=== PATIENT | male | born 1995 | race Caucasian/White ===

== ENCOUNTER 2017-05-30 15:48 | Emergency (ER) | END 2017-05-30 19:28 | disposition home or self-care (01) ==

== ENCOUNTER 2017-06-11 14:30 | Emergency (ER) | END 2017-06-11 17:09 | disposition home or self-care (01) ==

== ENCOUNTER 2018-06-10 21:06 | Emergency (ER) | payer OTHER ==
[~2018-06-10] VITALS: Ht 180.3 cm; Wt 74.8 kg
[~2018-06-10 21:06] MED LIST: CLOT30CR24 TOP; HC30CR25 TOP; IBUP-1542 PO
[2018-06-10 21:08] VITALS: Ht 180.3 cm; Wt 74.8 kg
--- NOTE | 2018-06-10 22:28 | ERD ---
ER Documentation Chief Complaint Chief Complaint genital pain x3 days w/ clear discharge. no dysuria/n/v HPI 22-year-old male presents with 3 days of clear purulent drainage from his penis. He does admit to recent unprotected sex. No dysuria. No testicular pain. No hematuria. No fever. No nausea or vomiting. ROS All systems reviewed and are negative except as per history of present illness. Medications Home Meds Active Scripts Clotrimazole* (Clotrimazole* AF) 1% - 30 Gm Cream.gm., 1 APPLIC TOP BID for 7 Days, #1 TUB Prov:SAMMI DICKSON PA-C 06/11/17 Hydrocortisone* Topical (Hydrocortisone* Topical) 2.5%-28.3 Gm Cream..g., 1 APPLIC TOP BID, #1 TUB Prov:SAMMI DICKSON PA-C 06/11/17 Ibuprofen* (Motrin*) 600 Mg Tab, 600 MG PO Q6, #30 TAB Prov:DIEGO REYNA 05/30/17 Allergies Allergies: Coded Allergies: No Known Drug Allergy (Verified Allergy, Unknown, 10/05/12) PMhx/Soc Anesthesia Reaction: No Hx Neurological Disorder: No Hx Respiratory Disorders: No Hx Cardiac Disorders: No Hx Psychiatric Problems: No Hx Miscellaneous Medical Probl: No Hx Alcohol Use: No Hx Substance Use: Yes (marijuana) Hx Tobacco Use: No Smoking Status: Never smoker FmHx Family History: No diabetes Physical Exam Vitals Vital Signs Date Temp Pulse Resp B/P (MAP) Pulse Ox O2 O2 Flow FiO2 Time Delivery Rate 06/10/18 98.1 85 16 154/85 96 21:08 (108) Physical Exam INITIAL VITAL SIGNS: Reviewed by me GENERAL: Awake, alert and oriented x 4, well appearing, nontoxic, speaking in full sentences. No acute distress HEAD: Atraumatic NECK: Supple. No masses. Full range of motion. No meningismus. No midline tenderness. EYES: EOMI. PERRL. RESPIRATORY: Clear to auscultation bilaterally. Symmetric chest wall rise. No wheezing or rales. No accessory muscle use. CV: Regular rate and rhythm. No murmurs, rubs, or gallops. ABDOMEN: Soft, non-distended. Nontender. Negative [place]. Negative McBurneys point tenderness. No CVA tenderness bilaterally. No guarding. No rebound. : Clear purulent drainage from penis, testicles nontender, no inguinal lymphadenopathy Results 24 hrs Current Medications Medications Dose Sig/Harpreet Start Time Status Last (Trade) Ordered Route PRN Stop Time Admin Dose Reason Admin Ceftriaxone 250 mg ONCE ONCE 06/10/18 Sodium IM 22:30 (Rocephin) 06/10/18 22:31 1,000 mg ONCE ONCE 06/10/18 Azithromycin PO 22:30 (Zithromax) 06/10/18 22:31 Procedures/MDM 22-year-old presents with urethritis. Patient given ceftriaxone and azithromycin here and counseled to follow-up to get a full STD panel checked. Refrain from sexual activity until all symptoms completely resolved. Patient counseled regarding my diagnostic impression and care plan. Prior to discharge all questions answered. Pt agrees with treatment plan and understands strict return precautions. Pt is instructed to follow up with primary care provider within 24-48 hours. Precautionary instructions provided including instructions to return to the ER if not improving or for any worsening or changing symptoms or concerns. Departure Diagnosis: Primary Impression: Urethritis Condition: Stable RASHARD ROCHA PA-C Jun 10, 2018 22:28
[2018-06-10] MEDS ORDERED: AZITHROMYCIN 250 MG TAB PO ONE (22:30)
[2018-06-10] MEDS ORDERED: CEFTRIAXONE 250 MG INJ IM ONE (22:30)
[2018-06-10 23:36] VITALS: BP 146/82; PULSE 86; RESP 16
== END 2018-06-10 23:37 | disposition home or self-care (01) ==
LOC: FTE 21:06
DX: N34.2 Other urethritis (principal)
CPT/HCPCS: 81003; 87086; J0696; Z7610; 96372

== ENCOUNTER 2018-09-27 16:20 | Emergency (ER) | payer OTHER ==
[~2018-09-27] VITALS: Ht 180.3 cm; Wt 75.4 kg
[2018-09-27 16:26] VITALS: Ht 180.3 cm; Wt 75.4 kg
[2018-09-27] MEDS ORDERED: IOHEXOL 100 ML ONE (18:18)
[2018-09-27] MEDS ORDERED: SOD CHLORIDE 0.9% 100 ML ONE (18:18)
[2018-09-27] MEDS ORDERED: IBUP-1542 PO (18:36)
[2018-09-27 21:15] VITALS: BP 121/79; PULSE 75; RESP 18
--- NOTE | 2018-10-11 12:11 | ERD ---
ER Documentation Chief Complaint Chief Complaint c/o neck pain after "cracking" it, no neuro deficit HPI 22-year-old male presents with left-sided neck pain radiating to his head for the last 2 to 3 days. Started after cracking his neck. He has intermittent blurry vision without visual field deficits. Denies any chest pain, shortness of breath. ROS All systems reviewed and are negative except as per history of present illness. Medications Home Meds Active Scripts Ibuprofen* (Motrin*) 600 Mg Tab, 600 MG PO Q6, #15 TAB Prov:LYSSA RIOS MD 09/27/18 Clotrimazole* (Clotrimazole* AF) 1% - 30 Gm Cream.gm., 1 APPLIC TOP BID for 7 Days, #1 TUB Prov:SAMMI DICKSON PA-C 06/11/17 Hydrocortisone* Topical (Hydrocortisone* Topical) 2.5%-28.3 Gm Cream..g., 1 APPLIC TOP BID, #1 TUB Prov:SAMMI DICKSON PA-C 06/11/17 Ibuprofen* (Motrin*) 600 Mg Tab, 600 MG PO Q6, #30 TAB Prov:DIEGO REYNA 05/30/17 Allergies Allergies: Coded Allergies: No Known Drug Allergy (Verified Allergy, Unknown, 09/27/18) PMhx/Soc Anesthesia Reaction: No Hx Neurological Disorder: No Hx Respiratory Disorders: No Hx Cardiac Disorders: No Hx Psychiatric Problems: No Hx Miscellaneous Medical Probl: No Hx Alcohol Use: No Hx Substance Use: Yes (marijuana) Hx Tobacco Use: No Smoking Status: Never smoker FmHx Family History: No diabetes, No coronary disease, No other Physical Exam Physical Exam Const: No acute distress Head: Atraumatic Eyes: Normal Conjunctiva and eyes Junior and extraocular movements intact. ENT: Normal External Ears, Nose and Mouth. Neck: Full range of motion. No meningismus. Mild tenderness left posterior cervical paraspinous muscles occipital area. Resp: Clear to auscultation bilaterally Cardio: Regular rate and rhythm, no murmurs Abd: Soft, non tender, non distended. Normal bowel sounds Skin: No petechiae or rashes Back: No midline or flank tenderness Ext: No cyanosis, or edema Neur: Awake and alert normal gait. No appreciable focal neurologic deficits. Cranial nerves II through XII grossly intact. Psych: Normal Mood and Affect Results 24 hrs Laboratory Tests Test 09/27/18 17:09 White Blood Count 7.4 10^3/ul Red Blood Count 5.29 10^6/ul Hemoglobin 15.8 g/dl Hematocrit 46.9 % Mean Corpuscular Volume 88.7 fl Mean Corpuscular Hemoglobin 29.9 pg Mean Corpuscular Hemoglobin Concent 33.7 g/dl Red Cell Distribution Width 11.8 % Platelet Count 273 10^3/UL Mean Platelet Volume 9.8 fl Immature Granulocytes % 0.100 % Neutrophils % 51.9 % Lymphocytes % 33.3 % Monocytes % 9.9 % Eosinophils % 4.1 % Basophils % 0.7 % Nucleated Red Blood Cells % 0.0 /100WBC Immature Granulocytes # 0.010 10^3/ul Neutrophils # 3.8 10^3/ul Lymphocytes # 2.5 10^3/ul Monocytes # 0.7 10^3/ul Eosinophils # 0.3 10^3/ul Basophils # 0.1 10^3/ul Nucleated Red Blood Cells # 0.0 10^3/ul Urine Color YELLOW Urine Clarity CLEAR Urine pH 5.0 Urine Specific Patriot 1.023 Urine Ketones NEGATIVE mg/dL Urine Nitrite NEGATIVE mg/dL Urine Bilirubin NEGATIVE mg/dL Urine Urobilinogen NEGATIVE mg/dL Urine Leukocyte Esterase NEGATIVE Sean/ul Urine Hemoglobin NEGATIVE mg/dL Urine Glucose NEGATIVE mg/dL Urine Total Protein NEGATIVE mg/dl Sodium Level 142 mmol/L Potassium Level 4.3 mmol/L Chloride Level 103 mmol/L Carbon Dioxide Level 29 mmol/L Anion Gap 10 Blood Urea Nitrogen 15 mg/dl Creatinine 0.95 mg/dl Est Glomerular Filtrat Rate mL/min > 60 mL/min Glucose Level 92 mg/dl Calcium Level 10.3 mg/dl Current Medications Medications Dose Sig/Harpreet Start Time Status Last (Trade) Ordered Route PRN Stop Time Admin Dose Reason Admin IV Flush 10 ml STK-MED 09/27/18 DC 09/27/18 (NS 10 ml) ONCE .ROUTE 18:18 18:38 09/27/18 18:19 Sodium 100 ml @ STK-MED 09/27/18 DC 09/27/18 Chloride ONCE .ROUTE 18:18 18:38 09/27/18 18:19 Iohexol 100 ml @ ud STK-MED 09/27/18 DC 09/27/18 ONCE .ROUTE 18:18 18:39 09/27/18 18:19 Procedures/MDM Patient presents with left-sided neck pain, headache and complaints of visual changes after cracking his neck 2 days ago. Given the potential emergent cause of CT brain and neck angios was performed which was read as negative by the radiologist. Patient has no signs of carotid or vertebral dissection, bleeding, neurologic deficits, signs of bacterial infection, fracture, dislocation, additional concerning signs or symptoms. Likely has cervical strain. She will be discharged home with pain control, primary care follow-up and return precautions. The patient was stable with no new complaints during the ER c ourse. Clinically, there is no current evidence to suggest meningitis, sepsis, acute abdomen, pneumonia, stroke, acute coronary syndrome, pulmonary embolism, aortic dissection or any other emergent condition appearing to require further evaluation or hospitalization. Patient counseled regarding my diagnostic impression and care plan. Prior to discharge all questions answered. Pt agrees with treatment plan and understands strict return precautions. Pt is instructed to follow up with primary care provider within 24-48 hours. Precautionary instructions provided including instructions to return to the ER if not improving or for any worsening or changing symptoms or concerns. Disclaimer: Inadvertent spelling and grammatical errors are likely due to EHR/dictation software use and do not reflect on the overall quality of patient care. Also, please note that the electronic time recorded on this note does not necessarily reflect the actual time of the patient encounter. Departure Diagnosis: Primary Impression: Injury of neck Condition: Stable Patient Instructions: Neck Sprain/Strain Referrals: MAXIMILIANO CARRERO (PCP) Additional Instructions: No acute abnormalities noted today. Recheck for new worsening symptoms with primary care doctor. Avoid cracking neck. LYSSA RIOS MD October 11, 2018 12:11
== END 2018-09-27 21:16 | disposition home or self-care (01) ==
LOC: FTE 16:20
DX: S19.9XXA Unspecified injury of neck, initial encounter (principal); X58.XXXA Exposure to other specified factors, initial encounter; Y92.9 Unspecified place or not applicable
CPT/HCPCS: 70496; 70498; 80048; 81003; 85025; Q9967; Z7610; 36415